=== PATIENT | female | born 1955 | race Caucasian/White ===

== ENCOUNTER 2021-08-10 07:37 | Outpatient (CLI) | payer MEDICARE, SELFPAY ==
--- NOTE | ~2021-08-10 | MM_ITS ---
EXAMINATION: MM screening [facility] w [facility] HISTORY: Screening TECHNIQUE: Craniocaudal and mediolateral oblique 3-D tomosynthesis images were obtained and synthetic 2-D images were generated. CAD analysis was submitted and interpreted. COMPARISON: Comparison to multiple prior studies sequentially, with oldest reviewed study dated 06/2013. BREAST PARENCHYMAL COMPOSITION: The breasts are heterogenously dense, which may obscure small masses FINDINGS: There are benign-appearing breast calcifications. There is no evidence of suspicious mass, calcification, or architectural distortion to suggest malignancy in either breast. There has been no suspicious interval change. IMPRESSION: 1. No mammographic evidence of malignancy. 2. Recommend routine screening mammography in one year. BI-RADS Category 2: Benign finding(s). Reviewed, dictated and finalized at location A.
== END 2021-08-10 07:38 | disposition home or self-care (01) ==
LOC: ANHIMG 07:40
PROVIDERS: PCP Internal Medicine; Visit Provider Internal Medicine
DX: Z12.31 Encounter for screening mammogram for malignant neoplasm of breast (principal)
CPT/HCPCS: 77063; 77067

== ENCOUNTER 2023-05-19 14:54 | Outpatient (CLI) | payer MEDICARE, SELFPAY ==
--- NOTE | ~2023-05-19 | MM_ITS ---
EXAMINATION: MM screening [facility] BI w pedro HISTORY: Screening mammogram TECHNIQUE: Craniocaudal and mediolateral oblique 3-D tomosynthesis images were obtained and synthetic 2-D images were generated. CAD analysis was submitted and interpreted. COMPARISON: 08/10/2021, 02/26/2019, 03/21/2017, 05/12/2013 BREAST PARENCHYMAL COMPOSITION: The breasts are heterogeneously dense, which may obscure small masses . FINDINGS: No suspicious mass, calcification, or architectural distortion are identified in either luis ast to suggest malignancy. There has been no suspicious interval change. IMPRESSION: 1. No mammographic evidence of malignancy. 2. Recommend routine screening mammography in one year. BI-RADS Category 1: Negative Reviewed, dictated and finalized at location A. [employer]
== END 2023-05-19 14:55 | disposition home or self-care (01) ==
PROVIDERS: PCP Nurse Practitioner Family; Visit Provider Nurse Practitioner Family
DX: Z12.31 Encounter for screening mammogram for malignant neoplasm of breast (principal)
CPT/HCPCS: 77063; 77067

== ENCOUNTER 2023-09-11 01:40 | Day surgery (SDC) | payer MEDICARE, SELFPAY ==
[2023-06-16 12:50] VITALS: BMI 20.7
[2023-08-26 13:12] VITALS: BMI 20.7
[2023-09-11 06:49] VITALS: BP 159/61; PULSE 103; RESP 18; TEMP 36.4; O2SAT 100
[2023-09-11] MEDS: LACTATED RINGERS 1,000 ML 150 ML IV CONT (07:00)
--- NOTE | 2023-09-11 07:59 | WPDANESEPPF ---
Anes - Initial Pre Proc Eval Procedure: Operation Date: 09/11/23 08:30 Proposed Procedures p Screening Colonoscopy - Tavon Oropeza MD Date/Time: 09/11/23 07:59 Surgeon: Tavon Oropeza MD Pre Op Diagnosis: neoplasm screening Patient Data Age: 68 Gender: F Height: 1.6 m Weight: 52.7 kg Last Vital Signs Temp 97.6 F 09/11/23 06:49 Pulse 103 H 09/11/23 06:49 Resp 18 09/11/23 06:49 BP 159/61 H 09/11/23 06:49 Pulse Ox 100 09/11/23 06:49 O2 Del Method Room Air 09/11/23 06:49 Allergies Allergy/AdvReac Type Severity Reaction Status Date / Time ibuprofen Allergy Unknown Abdominal Verified 09/11/23 06:48 discomfort poison james extract Allergy Unknown Rash Verified 09/11/23 06:48 Home Medications Medication Instructions Recorded Confirmed Type No Home Medications 08/26/23 08/26/23 History Patient hx anesthesia problems: none Family hx anesthesia problems: none Results Review: All pre-operative results and documents have been reviewed as part of the pre-operative evaluation. [facility] Past Medical History Medical History (Updated 07/14/23 @ 07:41 by Fabiana Nash APRN) Tonsil cancer Surgical History Surgical History (Updated 06/30/23 @ 07:28 by Audrey Self [facility]) H/O neck dissection (~11/2017) Family History Family History Father Family history of lymphoma Family history of dementia Mother Family history of atrial fibrillation Family history of congestive heart failure Sibling Hypertension Family history of coronary artery disease Social History Social History (Updated 06/30/23 @ 07:26 by Audrey Self CMA) Smoking status: Never smoker Second hand tobacco smoke exposure: Yes Alcohol intake: current Drinks per week: 35 Alcohol use details: 5-6 beers/day Substance use: never Do You Feel Safe in your Home?: Yes Lack of Transportation: No Lack of Food: Never True Current Housing: I Have Housing Concerned About Future Housing: No Difficulty Paying Gas/Electric Bills: No Difficulty Paying for Meds: No Currently Unemployed: No Living arrangements: with family Spiritual care concerns: No Anes - Eval Final PreProcedure Day of Procedure 09/11/23 07:59 Patient weight: normal Heart: regular rate and rhythm Lungs: clear to auscultation Airway: Mallampati scale class II Neurological: alert and oriented Last oral intake: >/= 8 hours ASA classification: III Emergent: no Anesthetic plan: proceed Anesthesia type and monitoring: general GIVS and standard monitoring Results Review: All pre-operative results and documents have been reviewed as part of the pre-operative evaluation. Informed Consent: The patient's anesthetic plan and its attendant risks and benefits were discussed with the patient/family/POA. Questions were solicited and answers provided to the satisfaction of the patient/family/POA.
--- NOTE | 2023-09-11 08:35 | PM.HPGS ---
History of Present Illness History of Present Illness Consent: Risks, benefits, and alternatives have been discussed and questions answered. Patient agrees to proceed with procedure. Chief complaint: neoplasm screening Narrative: Pamela Lim is a 68 year old female here for colonoscopy, last one 7 years ago Review of Systems Review of Systems: All systems reviewed & are unremarkable except as noted in HPI and below PMFSH Past Medical History Medical History (Updated 09/11/23 @ 08:36 by Tavon Oropeza MD) Colon cancer screening Tonsil cancer Surgical History Surgical History (Updated 06/30/23 @ 07:28 by Audrey Self [facility]) H/O neck dissection (~11/2017) Family History Family History Father Family history of lymphoma Family history of dementia Mother Family history of atrial fibrillation Family history of congestive heart failure Sibling Hypertension Family history of coronary artery disease Social History Social History (Updated 06/30/23 @ 07:26 by Audrey Self [facility]) Smoking status: Never smoker Second hand tobacco smoke exposure: Yes Alcohol intake: current Drinks per week: 35 Alcohol use details: 5-6 beers/day Substance use: never Do You Feel Safe in your Home?: Yes Lack of Transportation: No Lack of Food: Never True Current Housing: I Have Housing Concerned About Future Housing: No Difficulty Paying Gas/Electric Bills: No Difficulty Paying for Meds: No Currently Unemployed: No Living arrangements: with family Spiritual care concerns: No Meds Home Medications and Allergies Home Medications Medication Instructions Recorded Confirmed Type No Home Medications 08/26/23 08/26/23 History Allergies Allergy/AdvReac Type Severity Reaction Status Date / Time ibuprofen Allergy Unknown Abdominal Verified 09/11/23 06:48 discomfort poison james extract Allergy Unknown Rash Verified 09/11/23 06:48 Vital Signs Vital Signs - 24 hr 09/11/23 06:49 Temperature 97.6 F Pulse Rate 103 H Respiratory Rate 18 Blood Pressure 159/61 H Pulse Oximetry 100 Oxygen Delivery Room Air Exam Const: General: comfortable and no acute distress HENMT: Face/Nose/Sinus: Normal nares present Eyes: General: appearance normal, both eyes and all related structures Neck: Neck: no JVD Resp: Auscultation: clear to auscultation bilaterally Cardio: Rate: regular rate Rhythm: regular rhythm GI: Inspection: non-distended GI Palp: Yes Soft to palpation Skin: General skin exam: normal color Neuro: General: gait normal Speech: normal speech Extrem: General: normal to inspection Psych: Mental Status: mental status grossly normal Assessment and Plan Assessment and plan (1) Colon cancer screening: Code(s): Z12.11 - Encounter for screening for malignant neoplasm of colon Status: Acute Assessment and Plan: colonoscopy
[2023-09-11 09:00] VITALS: BP 117/72; PULSE 71; RESP 18; O2SAT 100
[2023-09-11 09:10] VITALS: BP 133/80; PULSE 64; RESP 16; O2SAT 100
[2023-09-11 09:20] VITALS: BP 130/78; PULSE 60; RESP 15; O2SAT 100
== END 2023-09-11 09:22 | disposition home or self-care (01) ==
PROVIDERS: PCP Nurse Practitioner Family; Visit Provider Internal Medicine Gastroenterology
PROC: 0DJD8ZZ Inspection of Lower Intestinal Tract, Via Natural or Artificial Opening Endoscopic (ICD-10-PCS; CPT 45378; principal; 2023-09-11 08:30)
DX: Z12.11 Encounter for screening for malignant neoplasm of colon (principal); D12.0 Benign neoplasm of cecum; D12.3 Benign neoplasm of transverse colon; K57.30 Diverticulosis of large intestine without perforation or abscess without bleeding; K64.8 Other hemorrhoids
CPT/HCPCS: 45385; 45380; 88305; J2704; J7120

== ENCOUNTER 2025-04-19 19:20 | Emergency (ER) | payer MEDICARE, SELFPAY ==
--- NOTE | ~2025-04-19 | XR_ITS ---
EXAMINATION: XR wrist LT 2V, XR hand LT 2V, XR forearm LT 2V DATE: 04/19/2025 20:12 INDICATION: Trauma due to fall. TECHNIQUE: 3 views of left hand, left wrist. 2 views of left forearm. were obtained. COMPARISON: None. FINDINGS: Acute comminuted fractures of distal radius. Fracture line extends to the articular surface of the radiocarpal joint. Fracture of the ulnar styloid process. No other fractures in the forearm. No acute fractures of the left hand. IMPRESSION: 1. Fractures of distal radius and ulnar styloid process as described above. Reviewed, dictated and finalized at location T. ER/WAITRESS HEAD IMPRESSION: 1. Fractures of distal radius and ulnar styloid process as described above. IMPRESSION: 1. Fractures of distal radius and ulnar styloid process as described above.
--- NOTE | ~2025-04-19 | XR_ITS ---
EXAMINATION: Pelvis AP view, left femur, left knee: DATE: 04/19/2025 INDICATION: Trauma TECHNIQUE: AP pelvis. 4 views of left femur. 3 views of left knee were obtained. COMPARISON: None. FINDINGS: No acute bony lesions of the pelvis and both hips. No acute fractures of the femur. No acute fractures at the left knee. No effusion is seen. Mild arthritis of medial compartment. IMPRESSION: 1. No acute bony lesions of pelvis, including left hip. No acute fractures of left femur and left knee. If symptoms are localized and persistent further imaging evaluation with MRI or nuclear bone scan is suggested. Reviewed, dictated and finalized at location T. ING MACHINE OPERATOR IMPRESSION: 1. No acute bony lesions of pelvis, including left hip. No acute fractures of l eft femur and left knee. If symptoms are localized and persistent further imagi ng evaluation with MRI or nuclear bone scan is suggested. IMPRESSION: 1. No acute bony lesions of pelvis, including left hip. No acute fractures of l eft femur and left knee. If symptoms are localized and persistent further imagi ng evaluation with MRI or nuclear bone scan is suggested.
--- NOTE | ~2025-04-19 | XR_ITS ---
Examination: XR wrist LT 2V Clinical History: repeat after traction Comparison: Earlier same day Technique: 2 views left wrist Findings/impression: 1. No significant change in alignment of fractures of distal radius and ulnar styloid. Reviewed, dictated and finalized at location R. KER OPERATOR
[2025-04-19 19:30] VITALS: BP 139/90; PULSE 79; RESP 18; TEMP 36.6; O2SAT 100
--- NOTE | 2025-04-19 19:49 | ED.FALL ---
HPI - Fall General Chief Complaint: Fall Stated Complaint: Fall; L wrist/L leg pain Time Seen by Provider: 04/19/25 19:41 Source: patient and family Mode of arrival: ambulatory Limitations: no limitations History of Present Illness HPI Narrative: Patient is a 70-year-old female presents to the emergency department accompanied by complaining of thinking she broke her left wrist. Patient notes around about 5:30 p.m. tonight she was on a stepping stool 10 to swat a stink bug and fell landing on her left side which she has pain to her left wrist and left thigh. Denies any history of injury to these regions in the past. Denies use of any blood thinners. Denies hitting her head or having loss of consciousness. Notes that she has been ambulatory since the event. Admits to some tingling in her left hand. Denies any urinary incontinence or stool incontinence. Denies any back pain or neck pain. Denies any chest pain or difficulty breathing. Related Data Allergies Allergy/AdvReac Type Severity Reaction Status Date / Time ibuprofen Allergy Unknown Abdominal Verified 04/19/25 20:25 discomfort poison james extract Allergy Unknown Rash Verified 04/19/25 20:25 Review of Systems Review of Systems: A 10 system review of systems was completed on the patient and is negative except for what is stated in the HPI. Nursing and ancillary documentation was reviewed. [facility] Past Medical History Medical History Colon cancer screening Tonsil cancer Surgical History Surgical History H/O neck dissection (~11/2017) Family History Family History Father Family history of lymphoma Family history of dementia Mother Family history of atrial fibrillation Family history of congestive heart failure Sibling Hypertension Family history of coronary artery disease Social History Social History Smoking status: Never smoker Second hand tobacco smoke exposure: Yes Alcohol intake: current Drinks per week: 35 Alcohol use details: 5-6 beers/day Substance use: never Lack of Transportation: No Lack of Food: Never True Current Housing: I Have Housing Concerned About Future Housing: No Difficulty Paying Gas/Electric Bills: No Difficulty Paying for Meds: No Currently Unemployed: No Difficulty w/ Childcare or Family Care: No Living arrangements: with family Occupation/Education: occupation Gender identity (if verbalized by the patient): Female Spiritual care concerns: No Agree to blood products: Yes Exam Narrative: CONST: No acute distress. Well nourished. HENMT: Head is normocephalic and atraumatic. Moist mucous membranes. No posterior oropharynx erythema. EYES: No scleral icterus. No conjunctival injection or pallor. PERRL. NECK: No meningeal signs. RESP: Able to speak in full sentences. Normal respiratory effort. CTAB. CARDIO: Regular rate. Regular rhythm. 2+ DP and radial pulses bilaterally. GI: Nondistended. No tenderness to palpation. Soft. : No CVA tenderness to palpation. SKIN: No rashes or lesions noted on exposed skin. Mild swelling and ecchymosis and tenderness palpation of the left lateral thigh, no rapid expansion, compartments are soft. NEURO: Oriented x3. Moves all extremities. EXTREM/MSK/BACK: No pedal edema. No midline vertebral tenderness to palpation or palpable step-offs. Moderate tenderness palpation of the left distal forearm. Capillary refill is less than 2 seconds in the distal fingers of the left upper extremity. Patient endorses tingling throughout the left hand. Flexion extension of the left wrist is limited secondary to pain. Patient is able to wiggle all her fingers of the left hand. Compartments are soft throughout the left upper extremity. PSYCH: Normal affect. Course Vital Signs Vital signs: Vital Signs Temperature 97.9 F 04/19/25 19:30 Pulse Rate 79 04/19/25 19:30 Respiratory Rate 18 04/19/25 19:30 Blood Pressure 139/90 04/19/25 19:30 Pulse Oximetry 100 04/19/25 19:30 Oxygen Delivery Room Air 04/19/25 19:30 Temperature 97.9 F 04/19/25 19:30 Pulse Rate 92 04/19/25 22:32 Respiratory Rate 13 04/19/25 22:32 Blood Pressure 136/88 04/19/25 22:32 Pulse Oximetry 97 04/19/25 22:32 Oxygen Delivery Room Air 04/19/25 19:30 Procedures Orthopedic Fracture Reduction Fracture #1: Fracture Reduction date: 04/19/25 Fracture Reduction time: 21:45 Time Out Performed: No Side: left Fracture Reduction Location: radius and ulna Pre-Procedure Neuro Vascular Exam: abnormal (slight tingling throughout the hand, normal capillary refill and motor function.) Technique: finger traps Post Reduction X-rays Demonstrate: acceptable reduction Post-reduction neuro exam: intact Post-reduction vascular exam: intact Splint Applied: Yes Patient Tolerated Procedure: well and no complications Orthopedic Splinting/Casting Injury #1: Splinting/Casting Date: 04/19/25 Splinting/Casting Time: 21:50 Side: left Upper Extremity Injury Location: forearm and wrist Upper Extremity Immobilizer: sugar tong splint Splint: prefabricated OCL: sugar tong Pre-Procedure Neuro Vascular Exam: normal Post-Procedure Neuro Vascular Exam: normal MDM MDM Narrative Medical decision making narrative: Patient presents with the above complaint. Initial vitals are remarkable for no significant abnormalities. Physical examination as noted above. Plan discussed: [address], ice packs, x-rays, extremity elevation. I spoke with Orthopedics on-call Dr. Soares who has reviewed the images and noted to place a splint and place patient in traction with finger traps while placing the splint, no need to do any pushing on the bones. On exam there is swelling and bruising to the left lateral thigh, compartment soft, moderate tenderness to palpation. Patient was placed in finger traps reduction of fracture and splinted and repeat x-rays show improvement. Patient with good capillary refill, wiggles all fingers, repeat assessment of the left thigh reveals no changes and no rapid expansion. Patient provided with an Shaan wrap to the left thigh. Patient counseled on signs symptoms of compartment syndrome and reasons to immediately return to the emergency department. Patient was reassessed at the bedside. No changes in physical exam. Patient is in no acute distress. The patient has remained stable throughout the entire ED visit. Counseled patient regarding diagnostic results and potential diagnosis. Anticipatory guidance provided. Patient instructed to follow up with orthopedics in 5 days. Patient counseled on: false reassurance from an emergency department evaluation; no current evidence of a medical emergency; return immediately for any new, recurrent, worsening, concerning, or refractory symptoms. Patient prescribed norco. Prescription sent to preferred pharmacy. Medications discussed with patient. Additional verbal and printed discharge instructions were given and discussed with the patient. Patient verbally acknowledges understanding of condition and discharge instructions. All questions were answered to the patient's satisfaction. Patient is in agreement with the plan of care. The patient is stable for discharge and was discharged without incident. Differential Diagnosis Differential Diagnosis: Fracture, contusion, sprain, strain, other acute traumatic injuries. Imaging Data Attestation: I personally reviewed and interpreted this imaging study as follows: My impression: Repeat x-ray of the left wrist status post reduction and splinting shows improvement in the fracture of the distal radius. Official radiology interpretation pending. Radiologist's impression: ITS Impressions Forearm X-Ray 04/19/25 20:13 IMPRESSION: 1. Fractures of distal radius and ulnar styloid process as described above. Hand X-Ray 04/19/25 20:13 IMPRESSION: 1. Fractures of distal radius and ulnar styloid process as described above. Wrist X-Ray 04/19/25 20:13 IMPRESSION: 1. Fractures of distal radius and ulnar styloid process as described above. Femur X-Ray 04/19/25 20:15 IMPRESSION: 1. No acute bony lesions of pelvis, including left hip. No acute fractures of left femur and left knee. If symptoms are localized and persistent further imaging evaluation with MRI or nuclear bone scan is suggested. Knee X-Ray 04/19/25 20:15 IMPRESSION: 1. No acute bony lesions of pelvis, including left hip. No acute fractures of left femur and left knee. If symptoms are localized and persistent further imaging evaluation with MRI or nuclear bone scan is suggested. Pelvis X-Ray 04/19/25 20:15 IMPRESSION: 1. No acute bony lesions of pelvis, including left hip. No acute fractures of left femur and left knee. If symptoms are localized and persistent further imaging evaluation with MRI or nuclear bone scan is suggested. Discharge Plan Discharge Clinical Impression: Fall, Distal radius fracture, left, Closed fracture of ulna, styloid process, Traumatic ecchymosis of left thigh Patient Disposition: Home Condition: Stable Instructions: Antibiotic Form, Arm Fracture in Adults (ED), Wrist Fracture in Adults (ED), Contusion in Adults (ED), Splint Care (ED), P.R.I.C.E. Treatment (ED) Additional Instructions: Take the pain medications as needed, keep your left leg and left arm elevated above your heart to help with swelling, wear the Shaan wrap on your left leg at all times. Ice packs to the area of discomfort for 15 minutes at a time every hour for the 1st 48-72 hours, do not go to sleep with an ice pack in place. Follow-up with Orthopedic surgery in 5 days for reassessment. Return immediately to the emergency department for any new or concerning symptoms especially sudden increase in pain, focal weakness, numbness, tingling, fever, or any emergent concerns for life, limb, eyesight. Patient Language: [place] Prescriptions: New hydrocodone-acetaminophen 5-325 mg tablet 1 tablet PO Q6H MDD 4 tabs PRN (Reason: pain) 5 Days Qty: 20 0RF No Action hydrocortisone [Anti-Itch (HC)] 1 % ointment 1 applic topical BID PRN (Reason: rash) Qty: 28.35 0RF rosuvastatin 5 mg tablet 5 mg PO DAILY Qty: 90 1RF lisinopril 10 mg tablet 10 mg PO DAILY Qty: 90 1RF Follow-up/Referrals: Stu Soares MD [Physician, Orthopedics] - 04/24/25 Fabiana Nash APRN [Primary Care Provider, Internal Medicine] Time of Disposition: 22:00
[2025-04-19] MEDS: HYDROcodone/acetaminophen (*CRX) 7.5-325 MG TABLET 1 TAB PO (20:19)
--- OUTSIDE RECORDS SUMMARY | 2025-04-19 21:24 | XMS_ITS | Clinical Summary ---
Author Organization [facility] Address Critical access hospital[address] [place] [address] Care Team Providers Care Boom Worker Name Role Phone Rakesh Jorgensen MD Unavailable Armen Merida MD Unavailable Lita Jones Unavailable [phone] Dominic Rodriugez MD Unavailable Rebecca Wyatt MD Unavailable Paresh Whitlock OD Unavailable [phone] Fabiana Nash NP Primary Care Provider [phone] Allergies Active Allergy Reactions Criticality Noted Date Comments Ibuprofen Stomach upset Low 10/14/2017 Naproxen Stomach upset Low 10/14/2017 Poison Hailey Extract Rash Medium 11/06/2017 Hydrocodone-Acetaminophen Itching Medium 10/12/2017 Medications No known medications Active Problems Problem Noted Date Diagnosed Date Neuropathy 04/21/2022 Assessment & Plan (04/21/2022 11:23 AM CHECKER): Neuropathy in bilateral feet; mild, only affecting 2nd and 3rd toes bilaterally Patient prefers to no medication at this time; previously had significant side effects from gabapentin at bedtime 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 Lymphedema 05/28/2018 Encounter for follow-up surveillance of tonsilla r cancer 02/26/2018 Ototoxicity, 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 Blood loss anemia 11/27/2017 Sensorineural hearing loss (SNHL), bilateral 03/2018 Assessment & Plan (04/21/2022 11:22 AM CHECKER): Patient reports decreased hearing, worse in right ear; started after chemotherapy Continue to monitor, evaluate if patient would benefit from hearing aids 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 18 Cancer Staging:Clinical stage from 11/10/2017:Stage I(cT1, cN1, cM0, p16: Positive) - Signed by Isak Gaspar MD on 11/20/2017 Overview (11/12/2017): Added automatically from request for surgery [id number] Assessment & Plan (04/21/2022 11:22 AM CHECKER): Stable, no radiographic evidence of recurrent disease, no enlarged lymph nodes Patient continues to follow with Oncology for surveillance Essential hypertension 11/09/2017 Assessment & Plan (04/21/2022 11:21 AM CHECKER): Blood pressure elevated today, 152/92; has been elevated in the past, most related to Oncology visits Per patient her home blood pressures normally run in the 130s over 80s Will have patient continue to monitor ambulatory blood pressures, send in cheeks If blood pressure becomes consistently greater than 140/90, will discuss starting medication Assessment & Plan (11/10/2017 11:07 AM CDT): BP well controlled overnight. -recommend DISCONTINUE Hydralazine given normotension and surgical intervention today to avoid intraoperative hypotension. -will reassess post-operatively regarding need for long-term BP control. Assessment & Plan (11/09/2017 4:59 PM CDT): Borderline HTN, BP 145/97, 152/82, 136/80 on recheck. -recommened Hydralazine 5mg PO Q8H tonight for BP control. -goal SBP 100-140; hold Hydralazine if SBP<100. -given likely general anesthesia tomorrow, would not over-treat to avoid intraoperative hypotension. 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 11/04/2017 Overview (11/04/2017): Added automatically from request for surgery [id number] Resolved Problems Problem Noted Date Diagnosed Date Resolved Date Mass of right side of neck 10/14/2017 1 05/22/2018 Immunizations Immunization Administration Dates Next Due Influenza, Quadrivalent, Hig h Dose, Preservative Free, Intrr 04/21/2022 Influenza, Quadrivalent, Spl it, Preservative Free, Intramuscular 03/16/2020 Surgical History Surgery Date Site/Laterality Comments TUBAL LIGATION US GUIDED ASPIRATION ABSCESS HEMATOMA CYST SOFT TISSUE 10/19/2017 N/A biopsy of tonsil x2 COLONOSCOPY 03/11/2017 - 04/09/2017 BIOPSY 11/08/2017 - 12/08/2017 neck/tonsillar PORT PLACEMENT CHEST >5 YEARS 01/08/2018 N/A TONSILLECTOMY AND ADENOIDECTOMY 11/08/2017 - 12/08/2017 removal of CA including lymph nodes and portion of tongue PORT REMOVAL 03/02/2018 N/A THROAT SURGERY LYMPH NODE BIOPSY November 2017 secondary to tonsil cancer NECK SURGERY 11/08/2017 - 12/08/2017 Lateral neck dissection secondary to CA Medical History Medical History Date Comments Allergic rhinitis Mixed conductive and sensorineural hearing loss Tonsil cancer 2017 Tinnitus Family History Medical History Relation Name Comments Lymphoma Father Heart failure Mother Diabetes Sister Hypertension Sister Relation Name Status Comments Father Mother Sister Social History Tobacco Use Types Packs/Day Years Used Date Smoking Tobacco: Never Smokeless Tobacco: Never Alcohol Use Standard Drinks/Week Comments Yes 35 (1 standard drink = 0.6 oz pure alcohol) 3-4/day and another 3-4 additional on weekend AUDIT-C Answer Date Recorded Q1: How often do you have a drink containing alcohol? 4 or more times a week 04/21/2022 Q2: How many drinks containi ng alcohol do you have on a typical day when you are drinking? 3 or 4 Q3: How often do you have si x or more drinks on one occasion? 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 Not on file Not on file Last Filed Vital Signs Vital Sign Reading Time Taken Comments Blood Pressure 135/81 03/31/2023 10:54 AM CHECKER Pulse 80 03/31/2023 10:54 AM CHECKER Temperature 36.8 C (98.3 F) 03/31/2023 10:54 AM CHECKER Respiratory Rate 16 03/31/2023 10:54 AM CHECKER Oxygen Saturation 99% 03/31/2023 10:54 AM CHECKER Inhaled Oxygen Concentration - - Weight 52 kg (114 lb 9.6 oz) 03/31/2023 10:54 AM CHECKER Height 160 cm (5' 3) 04/21/2022 10:30 AM CHECKER Body Mass Index 20.3 04/21/2022 10:30 AM CHECKER Plan of Treatment Health Maintenance Due Date Last Done Comments Breast Cancer Screening-Mammogram 1955 Colon Cancer Screening-Colonoscopy 1955 Osteoporosis Screening-Bone Density Scan 1956 DTaP/Tdap/Td Vaccine (1 - Tdap) 1967 Hepatitis B Screening 1974 Pneumococcal vaccine 65+ (1 of 2 - PCV) 1975 Zoster Vaccine (1 of 2) 1975 Well Visit 65+ 2021 Depression Screening 04/21/2023 04/21/2022 Fall Risk Assessment 04/21/2023 04/21/2022 Influenza Vaccine (#1) 2025 04/21/2022, 2019 Hepatitis C Screening Completed 08/30/2022 Medical Devices Implanted Type Area Architectural Examiner Device Identifier Shelf Expiration Date Model / Serial / Lot [employer] [id number] Xcela 8fr 1.6mm 1 Lumen Power Injectable Attach Catheter Fill - [id number] Implanted:Qty: 1 on 01/08/2018 at [facility] [employer] 10/27/2022 [id number] / [id number] Procedures Procedure Name Priority Date/Time Associated Diagnosis Comments HEPATITIS C ANTIBODY Routine 08/30/2022 7:31 AM CDT from Last 3 Months or Most Recently Relevant to Health Maintenance Results * Hepatitis C antibody (08/30/2022 7:31 AM CDT) Hep C Ab NON-REACTI VE NON-REACT LILIYA [facility] SIGNAL TO CUT-OFF 0.15 <1.00 [facility] Comment: HCV antibody was non-reactive. There is no laboratory evidence of HCV infection. In most cases, no further action is required. However, if recent HCV exposure is suspected, a test for HCV RNA (test code 40514) is suggested. For additional information please refer to http://education.VidBid/faq/AIU47n5 (This link is being provided for informational/ educational purposes only.) 08/30/2022 7:31 AM CDT 08/30/2022 7:33 AM CDT Narrative [facility] - 09/01/2022 4:26 PM CDT FASTING:YES FASTING: YES Tripp Springer MD LAB MICROBIOLOGY - GENERA L ORDERABLES Final Result [facility] [address] [place] [address] from Last 3 Months or Most Recently Relevant to Health Maintenance Insurance MEDICARE [employer] Logs [facility] MEDICARE [employer] Logs MEDICARE [employer] Advance Directives For more information, please contact: [phone] * Full Code (Latest Code Status on File) Date Activated Date Inactivated Comments 01/08/2018 10:11 AM 01/08/2018 1:56 PM * Full Code Date Activated Date Inactivated Comments 11/26/2017 2:10 PM 11/29/2017 4:35 PM * Full Code Date Activated Date Inactivated Comments 11/09/2017 1:58 PM 11/10/2017 8:18 PM Care Teams Boom Worker Relationship Specialty Start Date End Date Fabiana Nash NP [address] [place] [address] PCP - General Nurse Practitioner 03/31/23 Rakesh Jorgensen MD [address] [facility] [address] [place] [address] Consulting Physician Radiation Oncology 10/22/17 Armen Merida MD [address] [place] [address] Surgeon Otolaryngology 10/22/17 Lita Jones, PULMONOLOGY TECHNICIAN [address] [place] [address] Speech Language Pathologist Speech Therapy 11/18/17 Dominic Rodriguez MD [address] [place] [address] Radiation Oncologist Radiation Oncology 12/30/17 Rebecca Wyatt MD [address] [place] [address] Consulting Physician Radiation Oncology 03/15/18 Paresh Whitlock, ALECIA [address] [place] [address] Optometry 11/05/20
--- OUTSIDE RECORDS SUMMARY | 2025-04-19 21:24 | XMS_ITS | Encounter Summary ---
Author Organization [facility] Healthcare Address [address] [place] [address] Care Team Providers Care Model Maker Firearms Name Role Phone Rakesh Jorgensen MD Unavailable Armen Merida MD Unavailable Lita Jones Unavailable [phone] Dominic Rodriguez MD Unavailable [phone] Rebecca Wyatt MD Unavailable Grzegorz Govea MD Primary Care Provider [phone] Paresh Whitlock OD Unavailable [phone] No, Physician Primary Care Provider [phone] Tripp Springer MD Primary Care Provider [phone] Fabiana Nash NP Primary Care Provider [phone] Encounter Details Date Type Department Care Team (Late st Contact Info) Description 11/29/2020 Telephone [facility] Radiology [address] [place], [place] [id number] Kenny Leggett MD [address] [address] Social History Tobacco Use Types Packs/Day Years Used Date Smoking Tobacco: Never Smokeless Tobacco: Never Alcohol Use Standard Drinks/Week Comments Yes 35 (1 standard drink = 0.6 oz pure alcohol) 3-4/day and another 3-4 additional on weekend Comments No Sex and Gender Information Value Date Recorded Sex Assigned at Not on file Legal Sex Female 11:50 AM CONCRETE PAVEMENT INSTALLER Gender Identity Not on file Sexual Orientation Not on file 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 Not on file Not on file documented as of this encounter Plan of Treatment Not on file documented as of this encounter Visit Diagnoses Not on filedocumented in this encounter Care Teams Model Maker Firearms Relationship Specialty Start Date End Date Grzegorz Govea MD [address] [place] [address] PCP - General Internal Medicine 10/19/18 03/26/22 No, Physician PCP - General 03/27/22 04/20/22 Tripp Springer MD [address] [place] [address] PCP - General Family Medicine 04/21/22 03/30/23 Fabiana Nash, BUD [address] [place] [address] PCP - General Nurse Practitioner 03/31/23 Rakesh Jorgensen MD [address] [facility] [address] [facility] [address] [place] [address] Consulting Physician Radiation Oncology 10/22/17 Armen Merida MD [address] [facility] [address] [place] [address] Surgeon Otolaryngology 10/22/17 Lita Jones, GRINDER AND HONER OPERATOR AUTOMATIC [address] [place] [address] Speech Language Pathologist Speech Therapy 11/18/17 Dominic Rodriguez MD [address] [facility] [address] [place] [address] Radiation Oncologist Radiation Oncology 12/30/17 Rebecca Wyatt MD [address] [facility] [address] [place] [address] Consulting Physician Radiation Oncology 03/15/18 Paresh Whitlock OD [address] [facility] [address] [address] Optometry 11/05/20 documented as of this encounter
--- OUTSIDE RECORDS SUMMARY | 2025-04-19 21:24 | XMS_ITS ---
Author Organization [facility] Address Critical access hospital[address] [place] [address] Care Team Providers Care Woodworking Machine Setter Name Role Phone Rakesh Jorgensen MD Unavailable Armen Merida MD Unavailable Lita Jones Unavailable [phone] Dominic Rodriguez MD Unavailable [phone] Rebecca Wyatt MD Unavailable [phone] Paresh Whitlock OD Unavailable [phone] Fabiana Nash NP Primary Care Provider [phone] Active Problems Problem Noted Date Diagnosed Date Neuropathy 04/21/2022 Assessment & Plan (04/21/2022 11:23 AM STERILE TECH): Neuropathy in bilateral feet; mild, only affecting [...] 03/2018 Assessment & Plan (04/21/2022 11:22 AM STERILE TECH): Patient reports decreased hearing, worse in right ear; started after chemotherapy Continue to monitor, evaluate if patient would benefit from hearing aids 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 18 Cancer Staging:Clinical stage from 11/10/2017:Stage I(cT1, cN1, cM0, p16: Positive) - Signed by Isak Gaspar MD on 11/20/2017 Overview (11/12/2017): Added automatically from request for surgery [id number] Assessment & Plan (04/21/2022 11:22 AM STERILE TECH): Stable, no radiographic evidence of recurrent disease, no enlarged lymph nodes Patient continues to follow with Oncology for surveillance Essential hypertension 11/09/2017 Assessment & Plan (04/21/2022 11:21 AM STERILE TECH): Blood pressure elevated today, 152/92; has been [...] (11/04/2017): Added automatically from request for surgery [id number] Current Treatment and Therapy Plans No current plan information found. Past Treatment and Therapy Plans Oncology Chemotherapy Treatment Plan Name Start Date Discontinue Date Treatment Medications Discontinue Reason Plan Provider Cycles CISplatin with Concurrent Radiation 21 Day Cycles - Head and Neck 01/13/2018 02/23/2018 CISplatin (PLATINOL)CISp latin (PLATINOL) IVPB in 250 mL Therapy Complete Ba Ramirez MD 2 of 3 cycles started Oncology Supportive Care Therapy Plan Plan Name Start Date Discontinue Date Treatment Medications Discontinue Reason Plan Provider IV MAINTENANCE THERAPY PLAN 02/23/2018 03/14/2019 No medications scheduled. Therapy Complete Ba Ramirez MD Radiation Treatments * Course [id number] 01/14/2018 - 02/25/2018 Treatment Period Energy Fraction Dose Fractions Total Dose Plans Planned RT HN 01/14/2018 - 02/25/2018 200 30 / 6,000 Reference Points Delivered [id number]_6000 01/14/2018 - 02/25/2018 6,000 Lifetime Dose Tracking * Chemical Lifetime Dose Automatic Entry Manual Entr y Fluoro Time 0.1 minutes 0.1 minutes 0 minutes DLP 6,897 mGycm 6,897 mGycm 0 mGycm Resolved Problems Problem Noted Date Diagnosed Date Resolved Date Mass of right side of neck 10/14/2017 1 05/22/2018
--- OUTSIDE RECORDS SUMMARY | 2025-04-19 21:24 | XMS_ITS | Clinical Summary ---
Author Organization [facility] Address [address] [place] [address] Care Team Providers Care Riveter Name Role Phone Unavailable Primary Care Provider Unavailabl e Source Comments [facility],non-owned Affiliates and Associated Physician Practices is amultiple site organization consisting of ambulatory clinics and hospital sitesin [place], [place], [place] and [place]. This disclosure is being madepursuant to the Care Everywhere program and may not contain all information available regarding this patient. Last updated 18.[facility] T-Quad 22 Social History Tobacco Use Types Packs/Day Years Used Date Smoking Tobacco: Never Assessed Comments Unknown Sex and Gender Information Value Date Recorded Sex Assigned at Not on file Legal Sex Female 6:19 AM CONTINUOUS IMPROVEMENT DIRECTOR Gender Identity Not on file Sexual Orientation Not on file Plan of Treatment Health Maintenance Due Date Last Done Comments BONE DENSITY TESTING 1955 COLOGUARD (AGES 45-75) - COL ON CA SCREENING 1956 COLON MONITORING 1956 COLONOSCOPY - COLON CA SCREENING 1956 CT COLONOGRAPHY - COLON CA SCREENING 1955 Colorectal Cancer Screening 1956 FIT - COLON CA SCREENING 1956 FLEX SIG - COLON CA SCREENING 1956 LIPID TESTING 1956 MAMMOGRAM 1955 MEDICARE AWV 12 MONTHS 1956 HEPATITIS C SCREENING 03/11/1974 DTAP/TDAP/TD VACCINES (1 - Tdap) 1975 PNEUMOCOCCAL VACCINE 50+ (1 of 1 - PCV) 2006 ZOSTER VACCINE (1 of 2) 2006 DEPRESSION SCREENING 05/11/2024 COVID-19 VACCINE ( - 2024-2 6 season) 2025 INFLUENZA VACCINE (#1) 2025 Respiratory Syncytial Virus (RSV) Vaccine Pt: or over 60 yrs (1 - 1-dose 75+ series) 2031 HEPATITIS B VACCINE Aged Out No longe r eligible based on patient's age to complete this topic HIB VACCINE Aged Out No longer eligi ble based on patient's age to complete this topic HPV VACCINE Aged Out No longer eligi ble based on patient's age to complete this topic MENINGOCOCCAL (Group B) VACC INE SHARED DECISION-MAKING Aged Out No longer eligibl e based on patient's age to complete this topic MENINGOCOCCAL GROUPS A/C/Y/W VACCINE Aged Out No longer eligible b ased on patient's age to complete this topic Insurance * Guarantor: PAMELA BLAND Account Type Relation to Patient Date of Phone Billing Address Personal/Family [address] [place] [phone] MEDICARE [facility] MEDICARE [facility] * Guarantor: PAMELA BLAND Account Type Relation to Patient Date of Phone Billing Address Personal/Family [address] [place] [phone] MEDICARE [facility] INSURANCE MEDICARE SUPP * Guarantor: PAMELA BLAND Account Type Relation to Patient Date of Phone Billing Address Personal/Family [address] [place] [phone] MEDICARE [facility] INSURANCE MEDICARE SUPP
[2025-04-19 22:32] VITALS: BP 136/88; PULSE 92; RESP 13; O2SAT 97
== END 2025-04-19 22:34 | disposition home or self-care (01) ==
PROVIDERS: Emergency Provider Student in an Organized Health Care Education/Training Program; PCP Nurse Practitioner Family
DX: S52.502A Unspecified fracture of the lower end of left radius, initial encounter for closed fracture (principal); S52.612A Displaced fracture of left ulna styloid process, initial encounter for closed fracture; S70.12XA Contusion of left thigh, initial encounter; W08.XXXA Fall from other furniture, initial encounter; Z85.89 Personal history of malignant neoplasm of other organs and systems
CPT/HCPCS: 25624; 72170; 73090; 73100; 73120; 73552; 73562; 99285; A4565; A9270